=== PATIENT | male | born 1950 | race Native Hawaiian/Other Pacific Islander ===

== ENCOUNTER 2016-10-20 11:02 | Outpatient (CLI) | payer OTHER, BC ==
[~2016-10-20 11:02] MED LIST: AMOX500C85 PO; ANDRODERM2 MG/24 HR TD; CHLOSUS43 PO; GLUCOSAMINE1000 M1 PO; LISI20TA24 PO; MEDROL DOSEPAK4 MG OR; MOBIC15 MG PO; MULTIVITAMI1 PO; PANT40TA PO; TAMS0.4C PO; [UNRECOGNIZED DRUG - OTHER] PO
== END 2016-10-20 19:36 | disposition home or self-care (01) ==
LOC: RAD 11:02
DX: M54.5 Low back pain (principal)

== ENCOUNTER 2017-08-13 09:37 | Outpatient (CLI) | payer OTHER, BC | END 2017-08-13 22:14 | disposition home or self-care (01) | LOC: US 09:37 | DX: Z13.6 Encounter for screening for cardiovascular disorders (principal) ==

== ENCOUNTER 2020-01-18 09:23 | Outpatient (CLI) | payer OTHER, BC | END 2020-01-18 19:28 | disposition home or self-care (01) | LOC: RAD 09:23 | DX: M25.552 Pain in left hip (principal); M25.551 Pain in right hip ==

== ENCOUNTER 2020-06-04 08:19 | Outpatient (CLI) | payer OTHER, BC ==
[2020-06-04 09:09] LABS: PLATELET COUNT 196 K/uL (142-355)
[2020-06-04 09:32] LABS: POTASSIUM 4.1 mmol/L (3.6-5.2)
== END 2020-06-04 19:28 | disposition home or self-care (01) ==
LOC: LABW 08:19
PROVIDERS: ATTEND Internal Medicine
DX: Z00.00 Encounter for general adult medical examination without abnormal findings (principal); I10 Essential (primary) hypertension; Z12.5 Encounter for screening for malignant neoplasm of prostate; Z79.899 Other long term (current) drug therapy; N40.0 Benign prostatic hyperplasia without lower urinary tract symptoms
CPT/HCPCS: 36415; 80053; 80061; 81000; 84153; 84443; 85027

== ENCOUNTER 2021-03-04 07:44 | Outpatient (CLI) | payer OTHER, BC | END 2021-03-04 18:54 | disposition home or self-care (01) | LOC: RAD 07:44 | PROVIDERS: ATTEND Orthopaedic Surgery | DX: M25.552 Pain in left hip (principal) ==

== ENCOUNTER 2021-09-16 14:39 | Outpatient (CLI) | payer OTHER, BC | END 2021-09-16 18:54 | disposition home or self-care (01) | LOC: RAD 14:39 | PROVIDERS: ATTEND Orthopaedic Surgery | DX: M25.552 Pain in left hip (principal) ==

== ENCOUNTER 2021-10-14 08:41 | Outpatient (CLI) | payer OTHER, BC | END 2021-10-14 18:50 | disposition home or self-care (01) | LOC: MRI 08:41 | PROVIDERS: ATTEND Internal Medicine | DX: M51.16 Intervertebral disc disorders with radiculopathy, lumbar region (principal) | CPT/HCPCS: 36415; 82565; 84520; A9576 ==

== ENCOUNTER 2021-12-24 08:27 | Outpatient (CLI) | payer OTHER, BC | END 2021-12-24 18:47 | disposition home or self-care (01) | LOC: MRI 08:27 | PROVIDERS: ATTEND Orthopaedic Surgery | DX: S76.312A Strain of muscle, fascia and tendon of the posterior muscle group at thigh level, left thigh, initial encounter (principal); Y92.89 Other specified places as the place of occurrence of the external cause ==

== ENCOUNTER 2022-01-12 09:14 | Outpatient (CLI) | payer OTHER, BC | END 2022-01-12 20:39 | disposition home or self-care (01) | LOC: CT 09:14 | PROVIDERS: ATTEND Internal Medicine | DX: R51.9 Headache, unspecified (principal) ==

== ENCOUNTER 2022-10-14 21:04 | Observation (INO) | payer OTHER, BC ==
[~2022-10-14] VITALS: Ht 172.7 cm; Wt 90.3 kg
[~2022-10-14 21:04] MED LIST changes: -PANT40TA PO; +PANTOPRAZOLE 40MG TA PO
[2022-10-14 21:11] VITALS: BP 157/94; TEMP 98.3
[2022-10-14 21:30] VITALS: BP 160/88
[2022-10-14 21:47] LABS: PLATELET COUNT 264 K/uL (142-355)
[2022-10-14 21:51] LABS: POTASSIUM 3.5 mmol/L (3.6-5.2)
[2022-10-14 21:52] LABS: PARTIAL THROMBOPLASTIN TIME 30.1 SECONDS (23.9-36.7)
[2022-10-14 22:30] VITALS: BP 158/86
[2022-10-14 23:25] VITALS: BP 144/85
[2022-10-15 02:18] VITALS: BP 147/92; TEMP 98.2; Ht 172.7 cm; Wt 90.3 kg
[2022-10-15 04:00] VITALS: BP 147/81; BP 149/67; TEMP 98.3; TEMP 98.7
[2022-10-15 08:00] VITALS: BP 152/92; TEMP 98.7
[2022-10-15] MEDS ORDERED: HYDR-3182 PO (09:40)
[2022-10-15] MEDS ORDERED: METHOCARBAMOL PO (09:41)
[2022-10-15] MEDS ORDERED: HYZAAR1 TA2 PO (09:41)
[2022-10-15] MEDS ORDERED: TRAMADOL HCL200 MG PO (09:42)
[2022-10-15] MEDS ORDERED: FLUTICASONE PRO INH (09:43)
[2022-10-15] MEDS ORDERED: AMLODIPINE BESYLATE PO (09:43)
[2022-10-15] MEDS ORDERED: CARDURA8 MG PO (09:44)
[2022-10-15] MEDS ORDERED: METO50TA63 PO (09:45)
[2022-10-15] MEDS ORDERED: NARCAN4 MG/0.1 M NAS (09:46)
[2022-10-15] MEDS ORDERED: PRIM50TA4 PO (09:46)
[2022-10-15] MEDS ORDERED: FLONASE AL50 MCG/AC1 NAS (09:47)
[2022-10-15] MEDS ORDERED: MONT10TA PO (09:47)
[2022-10-15] MEDS ORDERED: [UNRECOGNIZED DRUG - OTHER] PO (09:48)
[2022-10-15] MEDS ORDERED: ASA LOW DOSE81 MG PO (09:48)
[2022-10-15] MEDS ORDERED: TESTOSTERONE IM (09:49)
[2022-10-15] MEDS ORDERED: BUSPIRONE10 MG PO (10:43)
== END 2022-10-15 11:15 | disposition home or self-care (01) ==
LOC: ED 21:04 → MED/SURG 22:42
PROVIDERS: ADMIT Family Medicine; ATTEND Internal Medicine
DX: K57.90 Diverticulosis of intestine, part unspecified, without perforation or abscess without bleeding (principal); F41.8 Other specified anxiety disorders; R06.02 Shortness of breath; R10.84 Generalized abdominal pain; I10 Essential (primary) hypertension; Z87.891 Personal history of nicotine dependence; Z79.899 Other long term (current) drug therapy
CPT/HCPCS: 36415; 80053; 80307; 81002; 82150; 82550; 83880; 84484; 85027; 85379; 85610; 85730; 93005; 99221; 99283; G0378; J1650; J2765; Q9963

== ENCOUNTER 2022-10-19 13:55 | Emergency (ER) | payer OTHER, BC ==
[~2022-10-19] VITALS: Ht 172.7 cm; Wt 93.0 kg
[~2022-10-19 13:55] MED LIST changes: +AMLODIPINE BESYLATE PO; +ASA LOW DOSE81 MG PO; +BUSPIRONE10 MG PO; +CARDURA8 MG PO; +FLONASE AL50 MCG/AC1 NAS; +FLUTICASONE PRO INH; +HYDR-3182 PO; +HYZAAR1 TA2 PO; +METHOCARBAMOL PO; +METO50TA63 PO; +MONT10TA PO; +NARCAN4 MG/0.1 M NAS; +PRIM50TA4 PO; +TESTOSTERONE IM; +TRAMADOL HCL200 MG PO; +[UNRECOGNIZED DRUG - OTHER] PO
[2022-10-19 13:58] VITALS: TEMP 98.1
[2022-10-19 17:40] VITALS: BP 148/91
== END 2022-10-19 17:40 | disposition home or self-care (01) ==
LOC: ED 13:55
DX: F10.239 Alcohol dependence with withdrawal, unspecified (principal)
CPT/HCPCS: 36415; 93005; 96365; 99284; J3411; J3490

== ENCOUNTER 2022-10-21 13:59 | Outpatient (CLI) | payer OTHER, BC ==
[~2022-10-21] VITALS: Ht 172.7 cm; Wt 90.0 kg
[2022-10-21 15:00] VITALS: BP 139/84; TEMP 97.7
[2022-10-21 16:00] VITALS: BP 154/85; TEMP 97.7
== END 2022-10-21 20:30 | disposition home or self-care (01) ==
LOC: INF 13:59
PROVIDERS: ATTEND Internal Medicine Endocrinology, Diabetes & Metabolism
DX: F10.239 Alcohol dependence with withdrawal, unspecified (principal); E86.0 Dehydration
CPT/HCPCS: 96365; J3411; J3490

== ENCOUNTER 2023-01-25 15:18 | Outpatient (CLI) | payer OTHER, BC ==
[2023-01-25 15:49] LABS: PLATELET COUNT 236 K/uL (142-355)
[2023-01-25 16:12] LABS: POTASSIUM 4.1 mmol/L (3.6-5.2)
== END 2023-01-25 19:18 | disposition home or self-care (01) ==
LOC: LAB 15:18
PROVIDERS: ATTEND Internal Medicine
DX: Z00.00 Encounter for general adult medical examination without abnormal findings (principal); Z12.5 Encounter for screening for malignant neoplasm of prostate; N40.0 Benign prostatic hyperplasia without lower urinary tract symptoms; Z79.899 Other long term (current) drug therapy
CPT/HCPCS: 80053; 80061; 81002; 84153; 84439; 84443; 85027